=== PATIENT | male | born 1960 | race Caucasian/White ===

== ENCOUNTER 2017-03-15 08:37 | Emergency (ER) | payer BC ==
[~2017-03-15] VITALS: Ht 172.7 cm; Wt 84.4 kg
[~2017-03-15 08:37] MED LIST: Z.0.NO CURRENT MEDS
[2017-03-15 08:53] VITALS: BP 138/71; PULSE 50; RESP 16; TEMP 98.2; O2SAT 98
[2017-03-15] MEDS ORDERED: MEDR4PAK PO (09:35)
[2017-03-15] MEDS ORDERED: CYCL10TA PO (09:35)
--- NOTE | 2017-03-15 09:39 | PD ---
HPI Chief Complaint: Musculoskeletal Complaint Time Seen by Provider: 09:26 Travel History International Travel<30 days: No Contact w/Intl Traveler<30days: No Traveled to known affect area: No History of Present Illness HPI Patient comes in complaining of left shoulder pain ongoing for a few weeks after unknown injury while working out at the gym. Pain is worse with certain movement. Patient describes pain as a sharp nagging pain that radiates distally. Denies any known trauma, fevers, chills, shortness of breath, or chest pain. Patient denies anything making symptoms better. PFSH Past Medical History Medical History: Denies Significant Hx Social History Alcohol Use: No Tobacco Use: No Substance Use: No Allergies-Medications (Allergen,Severity, Reaction): Coded Allergies: No Known Allergies (Verified Adverse Reaction, Unknown, 03/15/17) Reported Meds & Prescriptions Reported Meds & Active Scripts Active Flexeril (Cyclobenzaprine HCl) 10 Mg Tab 10 Mg PO Q8HR PRN Medrol Dosepak (Methylprednisolone) 4 Mg Dspk 4 Mg PO DIRECTED Per Pharmacist direction Review of Systems Except as stated in HPI: all other systems reviewed are Neg Physical Exam Narrative GENERAL: Well-developed, well nourished, in no acute distress, and non-ill appearing. SKIN: Focused skin assessment warm and dry. HEAD: Atraumatic. Normocephalic. EYES: Pupils equal and round. EOMI. No scleral icterus. No injection or drainage. ENT: No nasal bleeding or discharge. Mucous membranes pink and moist. NECK: Trachea midline. Supple. No nuclear rigidity. CARDIOVASCULAR: Radial pulses 2+, intact, equal bilaterally. Capillary refill less than 2 seconds. RESPIRATORY: No accessory muscle use. No respiratory distress. MUSCULOSKELETAL: No obvious deformities. No clubbing. No cyanosis. No edema. Slight decreased range of motion with internal and external rotation of left shoulder compared to the right secondary to pain. Shoulder:FROM equal BL with passive flexion, extension, Abduction, Adduction, and pronation/supination. Sensation equal BL deltoid muscles. Pulses equal BL distal to injury. Capillary refill less than 2 seconds distal to injury and equal BL. FROM distal to injury and equal BL. Strength distal to injury equal BL. NV intact distal to injury equal BL. Flexion and extension of thumb equal BL. Equal strength and movement with abduction/adductions of BL fingers. Director Software strength equal BL. No crepitus noted over left shoulder. NEUROLOGICAL: Awake and alert. No obvious cranial nerve deficits. Motor grossly within normal limits. Normal speech. PSYCHIATRIC: Appropriate mood and affect; insight and judgment normal. Data Data Last Documented VS Vital Signs Date Time Temp Pulse Resp B/P (MAP) Pulse Ox O2 Delivery O2 Flow Rate FiO2 03/15/17 09:47 03/15/17 08:53 98.2 50 16 98 Room Air Orders Orders Ed Discharge Order (03/15/17 09:39) MDM Medical Decision Making Medical Screen Exam Complete: Yes Emergency Medical Condition: Yes Differential Diagnosis Fracture, strain, contusion, rotator cuff injury, bursitis Narrative Course There is no clinical evidence for fracture. There is no clinical evidence to suspect bony injury by exam. Patient was offered x-rays but is comfortable with plan of care and following up with orthopedics. No obvious ligamental injury or internal derangement is noted at this time. The distal extremity appears neurovascularly intact, without evidence of neurovascular injury nor compartment syndrome. Tendon exam also was intact. The patient was discharged on medication along with sprain and splint care instructions and given warnings for vascular compromise. The patient is to follow up with Orthopedics. The patient agrees with plan. Patient in no obvious distress upon re-evaluation. Patient was asked if they wanted to speak to my attending, which the patient did not wish to do at this time. Any questions/concerns in reference to patient diagnosis/condition discussed and clarified prior to patient's discharge. Reinforced sheer importance of close follow up with patient's primary physician or primary care clinic. Instructed patient to return to ED immediately, if symptoms return/ worsen. Patient showed understanding of above instructions. Further instructions and recommendations were detailed in discharge paperwork. Patient ambulated without difficulty out of ED at discharge. Diagnosis Primary Impression: Left shoulder pain Qualified Codes: M25.512 - Pain in left shoulder Referrals: Gino Steinberg MD Patient Instructions: General Instructions, Shoulder Pain (GEN), Shoulder Sprain (ED) Additional Instructions: Follow-up with your primary care physician and/or orthopedic in 3-5 days for reevaluation. Take all medication as prescribed. Apply ice to affected area 20 minutes per hour as needed for pain. Rest affected shoulder until reevaluated by orthopedics or primary care. Return to the emergency department if symptoms get worse. Med/Other Pt SpecificInfo: Prescription(s) given Scripts Cyclobenzaprine (Flexeril) 10 Mg Tab 10 MG PO Q8HR Y for MUSCLE PAIN, #15 TAB 0 Refills Prov: Torrey Adrian MD 03/15/17 Methylprednisolone Dosepak (Medrol Dosepak) 4 Mg Dspk 4 MG PO DIRECTED, #1 DSPK 0 Refills Per Pharmacist direction Prov: Torrey Adrian MD 03/15/17 Disposition: 01 DISCHARGE HOME Condition: Stable Aashish Reed Mar 15, 2017 09:39
== END 2017-03-15 09:47 | disposition home or self-care (01) ==
LOC: PHEFT 08:37
DX: M25.512 Pain in left shoulder (principal)
CPT/HCPCS: 99284